=== PATIENT | male | born 2000 | race Two or more races ===

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

== ENCOUNTER 2020-11-09 02:22 | Emergency (ER) | payer MEDICAID ==
[~2020-11-09] VITALS: Ht 175.3 cm; Wt 84.8 kg
[2020-11-09 07:20] VITALS: BP 162/99
== END 2020-11-09 07:31 | disposition home or self-care (01) ==
LOC: ER 02:22
DX: S01.81XA Laceration without foreign body of other part of head, initial encounter (principal); W26.8XXA Contact with other sharp object(s), not elsewhere classified, initial encounter; Y93.89 Activity, other specified; Y92.89 Other specified places as the place of occurrence of the external cause; Y99.8 Other external cause status
CPT/HCPCS: 12013